=== PATIENT | male | born 1945 | race Caucasian/White ===

== ENCOUNTER 2017-03-23 17:39 | Inpatient (IN) | payer MEDICARE ==
[~2017-03-23] VITALS: Ht 182.9 cm; Wt 94.5 kg
--- NOTE | ~2017-03-23 | EC ---
PATIENT:KELVIN CONWAY JR DATE OF SERVICE: 03/23/17 SEX: M MEDICAL RECORD: [id number] DATE OF : 43 LOCATION:D. D.212 AGE OF PATIENT: 71 ADMISSION DATE: 03/23/17 REFERRING PHYSICIAN: INTERPRETING PHYSICIAN: BETY MENDOZA M.D. ECHOCARDIOGRAM REPORT ECHO CHARGES 5 ECHO LIMITED CLINICAL DIAGNOSIS: REASSESS RV THROMBUS,RV FUNCTION AND RVSP ECHOCARDIOGRAPHIC MEASUREMENTS (adult normal given) AC root (d.<3.7cm) 0 LV Septum d (<1.2 cm> 0 Valve Excursion 0 LV Septum (systole) 0 Left Atria (s.<4.0cm> 0 LVPW d(<1.2cm) 0 RV (d.<2.3cm) 0 LVPW (sytole) 0 LV diastole(<5.6CM) 0 MV E-F(>70mm/sec) 0 LV systole 0 LVOT Diameter 0 MV exc.(>10mm) 0 Est.ejection fraction (50-75%) Pericardial Effusion N DOPPLER: LVIT 0 A 0 E 0 LA 0 RVSP 43 LVOT 0 AOP1/2T 0 Asc. Ao 0 RVOT 0 RA 0 PA 0 AV Gradient Peak 0 AV Mean 0 AV Area 0 MV Gradient Peak 0 MV Mean 0 MV Area 0 COMMENTS: LIMITED STUDY (2-D ONLY) COMPLETE ECHO DONE ON 03/25/17 Physician'S Assistant: Geovanna PETERS Respiratory Therapy Instructor:2 Dr. Mendoza TAPE# PACS DATE OF SERVICE: 03/30/2017 INDICATION: Ventricular thrombus. REFERRING PHYSICIAN: Aaron Iglesias MD DESCRIPTION: This is a limited study. This was done to compare the study from 3 days ago regarding ventricular thrombus. Left ventricle is normal size and function. Estimated ejection fraction is 55%. ECHOCARDIOGRAM REPORT [id number] KELVIN CONWAY JR No wall motion abnormalities are seen. Mitral valve is structurally normal. There is mild regurgitation seen. The left atrium is normal in size. The right ventricle is normal in size. There does appear to be a thrombus near the apex. It does appear improved from the study on 03/27/2017. It appears a little bit adherent to the wall, but again, has improved from the previous study and appears to be reduced by another 1/3 compared to the last study. There is mild tricuspid regurgitation seen. There is no evidence of pericardial effusion. IMPRESSION: It appears the thrombus in the right ventricle apex is resolving. It appears improved from the study on 03/27/2017. It does appear to be somewhat adherent to the wall of the right ventricle. TRANSINT:[id number] Voice Confirmation ID: [id number] DOCUMENT ID: [id number] BETY MENDOZA M.D. CC: [id number] DICTATION DATE: 03/31/17954 GLOST TILE SHADER: 03/31/17 1149 ADM IN [facility] [address] [place] [place] [id number]
--- NOTE | ~2017-03-23 | HEMODYNAMI ---
PATIENT:KELVIN CONWAY JR MEDICAL RECORD: [id number] : 41 LOCATION:[place] [address] ADMISSION DATE: 03/23/17 Generatedon:03/26/201712:52 Patient name: KELVIN CONWAY Patient #: [id number] SSN: : 1 [id number] Date of study: 03/26/2017 Page: Of Hemodynamic Procedure Report Patient Data Patient Demographics Procedure consent was obtained First Name: KELVIN Gender: Male Last Name: ZORAIDA Suffix: [facility] Initial: DUGLAS : 1945 Patient #: [id number] Age: 71 year(s) Race: Unknown Additional ID: [id number] Contact details Address: [address] [place] [address] [facility] State: [place] City: [place] Zip code: [address] Past Medical History Allergies: No known allergies Admission Admission Data Admission Date: 03/23/2017 Admission Time: 21:57 Room #: [facility] Weight (lbs.): 190 Weight (kg.): 86.18 Procedure Procedure Types Cath Procedure Peripheral Cath Diagnostic Procedure Cath Peripheral Venography IVC/SVC Inferior Venacava Filter Procedure Description Procedure Date Procedure Date: 03/26/2017 Procedure Start Time: 9:02 Procedure Staff Name Function Breonna Archuleta RN Nurse Hallie Flores RT Lead Carpenter Hallie Flores RT Monitor Timothy Dominguez RT Scrub Wilfrid Meng MD Performing Physician Neva Braone RN Nurse Procedure Data Cath Procedure Fluoroscopy Diagnostic fluoroscopy Total fluoroscopy Time: 0.9 time: 0.9 min min Diagnostic fluoroscopy Total fluoroscopy dose: 107 dose: 107 mGy mGy Contrast Material Contrast Material Type Amount (ml) Isovue 300 25 Procedure Medications Medication Administration Route Dosage Fentanyl I.V. 50 mcg Versed I.V. 1 mg Fentanyl I.V. 50 mcg Versed I.V. 1 mg Fentanyl I.V. 50 mcg Hemodynamics Rest Heart Rate: 87 (bpm) Snapshots Pre Cath Intra NCS Post Cath Vital Signs Time Heart Resp SPO2 NIBP (mmHg) Rhythm Pain Sedation Rate (ipm) (%) Status Level (bpm) 8:42:08 80 26 96 162/108(147) NSR 0 (11) 10(A) , No pain 8:46:39 75 24 98 159/100(137) NSR 0 (11) 10(A) , No pain 8:51:03 74 29 94 152/96(133) NSR 0 (11) 10(A) , No pain 8:55:27 74 26 94 153/101(129) NSR 0 (11) 10(A) , No pain 8:59:53 73 25 94 158/95(135) NSR 0 (11) 10(A) , No pain 9:04:16 74 28 92 145/95(123) NSR 0 (11) 10(A) , No pain 9:08:36 71 26 93 144/96(124) NSR 0 (11) 10(A) , No pain 9:12:56 72 26 94 142/98(123) NSR 0 (11) 10(A) , No pain 9:17:16 71 26 94 150/95(130) NSR 0 (11) 10(A) , No pain 9:21:16 No Cuff NSR 0 (11) 10(A) , No pain 9:25:15 No Cuff NSR 0 (11) 10(A) , No pain Medications Time Medication Route Dose Verified Delivered Reason Notes Effectivenes s by by 8:50:33 Fentanyl I.V. 50 Neva Neva for mcg Lizabeth Lizabeth sedation RN RN 8:55:09 Versed I.V. 1 mg Neva Neva for Lizabeth Lizabeth sedation RN RN 8:55:39 Fentanyl I.V. 50 Neva Neva for mcg Lizabeth Lizabeth sedation RN RN 9:00:10 Fentanyl I.V. 50 Neva Neva for mcg Lizabeth Lizabeth sedation RN RN 9:00:20 Versed I.V. 1 mg Neva Neva for Lizabeth Lizabeth sedation RN education specialist Log Time Note 8:25:16 Patient Weight : 190 kg 8:28:42 Time tracking: Regular hours 8:30:04 Plan of Care:Hemodynamics will remain stable., Cardiac rhythm will remain stable., Comfort level will be maintained., Respiratory function will remain adequate., Patient/ family verbilizes understanding of procedure., Procedure tolerated without complication., Recovers from procedure without complications.. 8:30:20 Patient received from CVICU to IR Alert and oriented. Tansferred to table in Supine position. 8:30:26 Signed procedure consent form obtained from patient. 8:30:30 8:31:17 Use device set IR Diagnostic 8:31:19 Sterile Angiographic Pack opened to sterile field. 8:31:20 Bag Decanter opened to sterile field. 8:31:21 Acist Manifold opened to sterile field. 8:31:22 Acist Hand Control opened to sterile field. 8:31:23 Acist Syringe opened to sterile field. 8:31:44 Cook Salient PharmaceuticalsSON 145cm guide wire opened to sterile field. 8:31:45 Micropuncture VSI 4FR kit opened to sterile field. 8:33:04 H&P Date Dictated: 03/26/2017 Within 30 days and on chart.. 8:33:07 Pre-procedure instructions explained to patient. 8:33:08 Pre-op teaching completed and patient verbalized understanding. 8:33:11 Family unavailable. 8:33:14 Patient NPO since Midnight. 8:33:23 Patient allergic to No known allergies 8:33:47 Is the patient allergic to Iodine/contrast media? No. 8:33:50 Patient diabetic? No. 8:33:53 8:34:01 ----Pre-sedation anethsthesia assessment.---- 8:34:08 Previous problem with sedation/anesthesia? No ? 8:34:13 Snore? Yes 8:34:16 Sleep apnea? No 8:34:21 Deviated septum? No 8:34:23 Opens mouth fully? Yes 8:34:25 Sticks out tongue? Yes 8:34:30 Airway obstruction? No ?patient has afib 8:34:55 Dentures? No ? 8:35:05 IV patent on arrival in left forearm with 0.9% NaCl at [facility]. 8:35:16 Lab results completed and on chart. 8:35:28 Right groin area was prepped with chlora-prep and draped in sterile fashion 8:35:30 8:40:33 ECG and BP/O2 sat monitors applied to patient. 8:40:42 Vital chart was started 8:40:45 Baseline sample Acquired. 8:40:47 Baseline sample Acquired. 8:44:33 Alarms reviewed by Rimma Riggs 8:44:34 Sharps counted by scrub and verified by RToddNTodd 8:44:35 8:50:33 Fentanyl 50 mcg I.V. was administered by Neva Barone RN; for sedation; 8:55:08 Physician arrived 8:55:09 Versed 1 mg I.V. was administered by Neva Barone RN; for sedation; 8:55:39 Fentanyl 50 mcg I.V. was administered by Neva Barone RN; for sedation; 9:00:10 Fentanyl 50 mcg I.V. was administered by Neav Barone RN; for sedation; 9:00:20 Versed 1 mg I.V. was administered by Neva Barone RN; for sedation; 9:00:46 Final Timeout: patient, procedure, and site verified with staff and physician. All members of the team are in agreement. 9:01:01 Right groin site verified by team. 9:01:06 Physical assessment completed. ASA score P 3 - A patient with severe systemic disease as per Wilfrid Meng MD. 9:01:12 Sedation plan: IV Moderate Sedation Versed, Fentanyl 9:01:31 Bard NELIDA Vena Cava Filter opened to sterile field. 9:01:32 TUBING, CONTRAST INJCTN HI PRES opened to sterile field. 9::40 Full Disclosure recording started 9::40 Procedure started. 9:02:09 Local anesthetic to right femoral vein with Lidocaine 1% by Wilfrid Meng MD.INITIAL ACCESS ONLY 9:02:47 Venous access obtained using ultrasound guidance. 9:10:29 [place] Femoral IVC filter was placed below renal veins. 9:14:47 Procedure ended.(Physican Out) 9:14:53 Fluoroscopy time 00.90 minutes. 9:15:00 Fluoroscopy dose: 107 mGy 9:15:00 Flurop Dose total: 107 9:15:13 Contrast amount:Isovue 300 25ml. 9:15:16 Sharps counted by scrub and verified by R.N. 9:26:41 Procedure and supply charges have been captured, reviewed, submitted and are correct. 9:26:57 Vital chart was stopped 9:27:01 Full Disclosure recording stopped Device Usage Item Name Manufacture Quantity Catalog Hospital Part Current Minima l Lot# / Number Charge Number Stock Stock Serial# Code Sterile Cardinal 1 [id number] 5 Angiographic Health Pack Bag Decanter Microtek 1 [id number] 88569 [id number] 5 Medical Inc. Acist Acist 1 23301 440426 558672 926590 5 Manifold Medical Systems Inc Acist Hand Acist 1 26896 879628 558999 413591 5 Control Medical Systems Inc Acist Syringe Acist 1 84504 185799 350525 056809 20 Medical Systems Inc [facility] Meal Sharing Medical 1 [id number] 273931 217653 5 [id number] 145cm guide wire Micropuncture VSI VASCULAR 1 [id number] 978007 586770 5 VSI 4FR kit SOLUTIONS Bard NELIDA Bard 1 [id number] 009301 542210 152855 5 Vena Cava Filter TUBING, Merit 1 [id number] 524894 711963 539926 5 CONTRAST Medical INJCTN HI PRES Signature Audit Desdemona Stage Time Signature Unsigned Intra-Procedure 03/26/2017 Hallie Flores 9:26:54 AM RT(R); Breonna Archuleta RN Signatures Monitor : Hallie Flores RT Signature : Date : Time : [facility] [address] [facility] [place] [address]
--- NOTE | ~2017-03-23 | EC ---
PATIENT:KELVIN CONWAY JR DATE OF SERVICE: 03/23/17 SEX: M MEDICAL RECORD: [id number] DATE OF : 43 LOCATION:D.M2 D.212 AGE OF PATIENT: 71 ADMISSION DATE: 03/23/17 REFERRING PHYSICIAN: INTERPRETING PHYSICIAN: BETY MENDOZA M.D. ECHOCARDIOGRAM REPORT ECHO CHARGES 5 ECHO LIMITED CLINICAL DIAGNOSIS: RV MASS/THROMBUS S/P IVC FILTER PLACEMENT ECHOCARDIOGRAPHIC MEASUREMENTS (adult normal given) AC root (d.<3.7cm) 0 LV Septum d (<1.2 cm> 0 Valve Excursion 0 LV Septum (systole) 0 Left Atria (s.<4.0cm> 0 LVPW d(<1.2cm) 0 RV (d.<2.3cm) 0 LVPW (sytole) 0 LV diastole(<5.6CM) 0 MV E-F(>70mm/sec) 0 LV systole 0 LVOT Diameter 0 MV exc.(>10mm) 0 Est.ejection fraction (50-75%) Pericardial Effusion N DOPPLER: LVIT 0 A 0 E 0 LA 0 RVSP 0 LVOT 0 AOP1/2T 0 Asc. Ao 0 RVOT 0 RA 0 PA 0 AV Gradient Peak 0 AV Mean 0 AV Area 0 MV Gradient Peak 0 MV Mean 0 MV Area 0 COMMENTS: LIMITED STUDY (2-D ONLY) COMPLETE ECHO DONE ON 03/25/17 Transportation Operations Manager: Norma LUIOE Demand Generation Manager:Geovanna Mendoza TAPE# PACS DATE OF SERVICE: 03/27/2017 REFERRING PHYSICIAN: Aaron Iglesias M.D. INDICATION: Right ventricular thrombus. DESCRIPTION: This is a limited study. The full echo was done on 03/25/2017. Left ventricle does appear normal size and function. In the right ventricle there does still appear to be a mass. It measures 2.2 cm x 0.7 cm. This still appears to be thrombus. However, it appears to be about half the size it was a ECHOCARDIOGRAM REPORT [id number] KELVIN CONWAY few days ago. It does not extend all the way across the apex as before. Tricuspid valve appears structurally normal. There is no pericardial effusion seen. IMPRESSION: The right ventricular mass, which is likely thrombus, appears to be dissipating. It is about half the size it was on the previous echo 2 days ago. TRANSINT:[id number] Voice Confirmation ID: [id number] DOCUMENT ID: [id number] BETY MENDOZA M.D. CC: [id number] DICTATION DATE: 03/28/17733 GRAIN ELEVATOR MOTOR STARTER: 03/28/17 112 ADM IN [facility] [address] [place] [address]
--- NOTE | ~2017-03-23 | EC ---
PATIENT:KELVIN CONWAY JR DATE OF SERVICE: 03/23/17 SEX: M MEDICAL RECORD: [id number] DATE OF : 43 LOCATION:[place] [address] AGE OF PATIENT: 71 ADMISSION DATE: 03/23/17 REFERRING PHYSICIAN: INTERPRETING PHYSICIAN: BETY MENDOZA M.D. ECHOCARDIOGRAM REPORT ECHO CHARGES 4 ECHO COMPLETE CLINICAL DIAGNOSIS: SOB ECHOCARDIOGRAPHIC MEASUREMENTS (adult normal given) AC root (d.<3.7cm) 3.9 LV Septum d (<1.2 cm> 1.5 Valve Excursion 2.3 LV Septum (systole) 1.7 Left Atria (s.<4.0cm> 3.2 LVPW d(<1.2cm) 1.3 RV (d.<2.3cm) 3.2 LVPW (sytole) 1.7 LV diastole(<5.6CM) 4.7 MV E-F(>70mm/sec) LV systole 3.1 LVOT Diameter 2.2 MV exc.(>10mm) Est.ejection fraction (50-75%) Pericardial Effusion N DOPPLER: LVIT A 75.0 E 53.0 LA RVSP 79.0 LVOT 83.0 AOP1/2T Asc. Ao 136 RVOT 40.0 RA PA 41.0 AV Gradient Peak 7.4 AV Mean 3.5 AV Area 2.3 MV Gradient Peak 2.4 MV Mean 0.97 MV Area COMMENTS: Sql Programmer: Norma COLLIER Block Paver:Geovanna Mendoza TAPE# PACS DATE OF SERVICE: 03/25/2017 REFERRING PHYSICIAN: Aaron Iglesias MD INDICATION: Pulmonary hypertension and dyspnea. DESCRIPTION: Left ventricular demonstrates left ventricular hypertrophy. There is moderate LV dysfunction noted. Estimated ejection fraction is in the order of 40%. No regional wall motion abnormalities noted. Mitral valve is structurally normal. There is mild to moderate regurgitation noted. Left ECHOCARDIOGRAM REPORT [id number] KELVIN CONWAY JR atrium is normal size. The aortic valve is trileaflet. There is mild insufficiency seen, but no evidence of stenosis. Right ventricle is moderately dilated. There is mild impairment of systolic function. Tricuspid valve is structurally normal. There is moderate regurgitation noted. Right ventricular systolic pressure is elevated at 79 mmHg. Right atrium is mildly dilated. There is no pericardial effusion seen. In the right ventricle apex, there is a long linear structure suspicious for thrombus. This does not appear to be a Chiari network or any other abnormality of the ventricle. I do not think it is a mass IMPRESSION: 1. Moderate left ventricular dysfunction with ejection fraction of 40%. 2. Mild mitral regurgitation. 3. Mild aortic insufficiency. 4. Moderate tricuspid regurgitation with pulmonary hypertension. 5. There appears to be a long linear structure across the right ventricle apex which is suspicious for a thrombus. TRANSINT:[id number] Voice Confirmation ID: [id number] DOCUMENT ID: [id number] BETY MENDOZA M.D. CC: [id number] DICTATION DATE: 03/26/17 0839 POLE LIFT OPERATOR: 03/26/17 1035 ADM IN [facility] [address] [place] [id number]
[2017-03-23 18:51] LABS: BASOPHILS 0.1 % (0-2); EOSINOPHILS 0.2 % (0-7); HEMATOCRIT 42.3 % (42.0-54.0); HEMOGLOBIN 14.1 g/dL (13.5-17.5); IMMATURE GRANULOCYTES 0.4 % (0-5); LYMPHOCYTES 11.5 % (15-50); MCH 33.1 pg (26.0-34.0); MCHC 33.3 g/dL (31.0-37.0); MCV 99.3 fL (80.0-100.0); MEAN PLATELET VOLUME 10.1 fL (7.4-10.4); MONOCYTES 5.8 % (2-11); RBC 4.26 10x6/uL (4.20-6.10); RDW 13.7 % (11.5-14.5); WBC 12.6 10x3/uL (4.8-10.8)
[2017-03-23 18:52] LABS: PLATELET COUNT 144 10x3/uL (130-400)
[2017-03-23 19:03] LABS: ALBUMIN 2.9 g/dL (3.4-5.0); ANION GAP 9.9 mmol/L (8-16); BILIRUBIN - TOTAL 1.3 mg/dL (0.2-1.3); CALCIUM 8.6 mg/dL (8.5-10.1); CARBON DIOXIDE 31.4 mmol/L (21.0-32.0); CREATININE - SERUM 1.3 mg/dL (0.6-1.3); POTASSIUM - SERUM 4.3 mmol/L (3.5-5.1); PROTEIN - SERUM 6.4 g/dL (6.4-8.2)
[2017-03-23 22:47] VITALS: BP 117/88; BMI 25.8
[2017-03-23] MEDS ORDERED: RYTHMOL SR225 MG PO (23:04)
[2017-03-23] MEDS ORDERED: SAW PALMETTO450 MG PO (23:05)
[2017-03-23] MEDS ORDERED: DOXYCYCLINE HY100 M2 PO (23:05)
--- NOTE | 2017-03-23 23:21 | NUR ---
PT ARRIVED VIA STRETCHER FROM ER AT 2234 HRS. NO DISTRESS NOTED. IV TO L WRIST WITH NS AT 50CC/HR. O2 2LNC. LUNGS DIMINISHED IN BASES BILAT. FEET COLD TO TOUCH. PT STATES THAT IS NORMAL FOR HIM. WAINWRIGHT. SKID PROOF SOCKS PLACED ON PT. ADMISSION ASSESSMENT, HISTORY AND HOME MED LIST COMPLETED. PT CURRETNLY RESTING WITH EYES CLOSED. RESP EVEN AND REGULAR. SR UP X2, CALL LIGHT WITHIN REACH.
--- NOTE | 2017-03-23 23:58 | NUR ---
ZITHROMAX 500MG IVPB INFUSING. WILL CONTINUE TO MONITOR.
[2017-03-24 00:36] VITALS: BP 117/88
--- NOTE | 2017-03-24 02:27 | NUR ---
PT STATED IV HURTING. ZITHROMZX RATE DECREASED TO 75CC/HR. APPROX 15 MINUTES LATER PT STATED HE CAN'T TOLERATE IT AT ALL. APPROX 30CCOF IVAB LEFT IN BAG. IV DETACHED FORM PT AND LINE FLUSHED WITH THE NS BY JORDON BLAKE. NS BACK UP AT 50CC/HR. RECHECKED WITH PT APPROX 10 MINNUTES LATER AND PT STATED NO DISCOMFORT FROM IV. O2 SAT 94% ON 2LNC. WILL CONTINUE TO MONITOR.
[2017-03-24 04:30] VITALS: BP 129/94
--- NOTE | 2017-03-24 04:44 | NUR ---
SR PER CM HR 85. PT DENIES ANY SOB AT THIS TIME. SCD'S EXPLAINED TO PT. SCD'S ON AT THAT TIME. WILL CONTINUE TO MONITOR.
--- NOTE | 2017-03-24 06:00 | NUR ---
VSS THROUGHOUT NIGHT. SR PER CM. PT DENIES ANY DISCOMFORT AT THIS TIME. NEEDS MET; WILL CONTINUE TO MONITOR.
[2017-03-24 08:05] VITALS: BP 122/101
[2017-03-24 10:35] LABS: CKMB 1.1 U/L (0.0-3.6); CREATINE KINASE 40 UL (21-232)
--- NOTE | 2017-03-24 11:51 | NUR ---
ALERT AND ORIENTED X4. BLOOD PRESSURE 155/90 WITH VITAL SIGN MACHINE. RECHECK BP MANUALLY. BP-122/86. D-DIMER GREATER THAN 20. TROPONIN 0.070. LAB RESULTS CALLED TO DR. CHAN PER ORDER. CTA ORDERED WITH RESULTS TO BED CALLED TO . DENIES ANY NEEDS. LOVENOX ONE TIME DOSE ORDERED PER . CONTINUE PLAN OF CARE AND SAFETY PRECAUTIONS.
[2017-03-24 12:06] VITALS: BP 122/85
[2017-03-24 19:00] VITALS: BP 113/81
--- NOTE | 2017-03-24 20:11 | NUR ---
INITIAL ROUNDS COMPLETED AT 1915 HRS. PT DENIED ANY DISCOMFORT. PT STATED HE WILL REFUSE PM ZITHROMAX. ASSESSMENT COMPLETED AT 194 HRS. SR PER CM HR 99. O2 2LNC. LUNGS DIMINISHED IN BASES BILAT. IV TO L WRIST WITH NS AT 50CC/HR. IV PATENT. FEET COOL TO TOUCH WITH PALPABLE PEDAL PULSES. PT STATES THAT IS NORMAL FOR HIM. WILL CONTINUE TO MONITOR. SR UP X2, CALL LIGHT WITHIN REACH.
--- NOTE | 2017-03-24 22:05 | NUR ---
PM MEDS GIVEN. PT REFUSED IV ZITHROMAX STATING IT WAS PAINFUL INFUSING LAST PM. DOPPLER OF BILAT LEGS COMPLETED. R FOOT COOL TO TOUCH. L FOOT SLIGHTY WARM WITH RACE EDEMA. PALPABLE BILAT PEDAL PULSES. PT DENIES ANY DISCOMFORT. WILL CONTINUE TO MONITOR. SCD'S OFF EARLIER IN THE DAY.
--- NOTE | 2017-03-24 22:21 | NUR ---
DR CHAN NOTIFIED OF RESULTS OF DOPPLER. NO NEW ORDERS.
--- NOTE | 2017-03-24 23:39 | NUR ---
PT RESTING WITH EYES CLOSED. RESP EVEN AND REGULAR. SR UPX2, CALL LIGHT WITHIN REACH.
[2017-03-24 23:56] VITALS: BP 114/86
[2017-03-25] VITALS (13 sets, daily range): BP systolic 115–154; BP diastolic 73–119
--- NOTE | 2017-03-25 01:45 | NUR ---
PT RESTING WITH EYES CLOSED. RESP EVEN AND REGULAR. SR UP X2, CALL LIGHT WITHIN REACH.
--- NOTE | 2017-03-25 04:18 | NUR ---
PT AWAKE;DENIES ANY DISCOMFORT. WILL CONTINUE TO MONITOR.
--- NOTE | 2017-03-25 05:45 | NUR ---
VSS TRHOUGHOUT NIGHT. SR PER CM. PT DENIED ANY DISCOMFORT. NEEDS MET; WILL CONTINUE TO MONITOR.
[2017-03-25 06:21] LABS: BASOPHILS 0.2 % (0-2); EOSINOPHILS 0.9 % (0-7); HEMOGLOBIN 12.9 g/dL (13.5-17.5); IMMATURE GRANULOCYTES 0.5 % (0-5); LYMPHOCYTES 15.7 % (15-50); MCH 33.1 pg (26.0-34.0); MCHC 33.9 g/dL (31.0-37.0); MCV 97.4 fL (80.0-100.0); MEAN PLATELET VOLUME 10.1 fL (7.4-10.4); MONOCYTES 13.2 % (2-11); NEUTROPHILS 69.5 % (40-80); PLATELET COUNT 145 10x3/uL (130-400); RDW 13.9 % (11.5-14.5); WBC 15.5 10x3/uL (4.8-10.8)
[2017-03-25 07:10] LABS: CALC OSMOLALITY 290 mosm/kg (275-300); CALCIUM 8.1 mg/dL (8.5-10.1); CARBON DIOXIDE 24.1 mmol/L (21.0-32.0); CHLORIDE - SERUM 107 mmol/L (98-107); GLUCOSE 121 mg/dL (74-106); SODIUM 142 mmol/L (136-145); UREA NITROGEN 33 mg/dL (7-18); eGFR NON AFRICAN AMERICAN 78 mL/min (90-120)
[2017-03-25 07:15] LABS: TROPONIN-I 0.076 ng/mL (0.000-0.060)
--- NOTE | 2017-03-25 14:20 | NUR ---
ALERT AND ORIENTED X4. ORDER TO TRANSFER TO CVICU07 PER . TRANSFER TO CVICU RM 7 WITH RESPIRATORY ASSISTANCE. REMAIN FREE FROM INJURY.
--- NOTE | 2017-03-25 14:20 | NUR ---
Received patient from floor via bed. Patient transferred from floor bed to ICU bed. Patient AAO x4, accompanies him. and aware of consults. Patient connected to monitors.
--- NOTE | 2017-03-25 14:32 | NUR ---
in room to see patient.
--- NOTE | 2017-03-25 15:00 | NUR ---
SECOND IV SITE STARTED TO RIGHT AC. DR KUHN, DR MINA, DR RUIZ HERE TO SEE PT. S1S2 NOTED, SR PER CM. LUNG SOUNDS CLR BILAT, PT HAS NC @ 2L. PPP. LOWER EXTEMITIES WARM, CMS INTACT. NEW ORDERS RECD. VSS. WILL MONITOR.
--- NOTE | 2017-03-25 17:18 | NUR ---
PT PROVIDED WITH DINNER TRAY AT THIS TIME. PT SITS UP IN BED TO EAT, FEEDS INDEPENDENTLY.
--- NOTE | 2017-03-25 19:41 | NUR ---
REPORT RECEIVED AND ASSESMENT COMPLETED. SEE FLOWSHEET FOR FULL DETAILS. VSS. WILL MONITOR THROUGHOUT SHIFT. DR MINA AT BEDSIDE. DISCUSSED PT CONDITION AND TPA ADMINISTRATION THAT OCCURED EARLIER TODAY. WILL CONTINUE TO FOLLOW CURRENT CARE PLAN.
--- NOTE | 2017-03-25 21:31 | NUR ---
2100 MEDS GIVEN. NO CHANGES IN STATUS AT THIS TIME. PT RESTING IN ROOM IN VIEW OF NURSES STATION BEDSIDE RAILS UP X 2. VSS WILL CONTINUE TO MONITOR FOR CHANGES.
--- NOTE | 2017-03-25 23:24 | NUR ---
REASSESSMENT COMPLETED SEE FLOWSHEET FOR FULL DETAILS. NO OTHER CHANGES AT THIS TIME. VSS. WILL CONTINUE TO MONITOR FOR CHANGES THROUGHOUT SHIFT.
[2017-03-26] VITALS (24 sets, daily range): BP systolic 116–147; BP diastolic 71–90; Ht 182.9 cm; Wt 94.5 kg
--- NOTE | 2017-03-26 01:08 | NUR ---
NO CHANGES IN STATUS AT THIS TIME. VSS. WILL MONITOR
--- NOTE | 2017-03-26 03:00 | NUR ---
REASSESSMENT COMPLETED. SEE FLOWSHEET FOR FULL DETAILS. NO OTHER CHANGES IN PT STATUS AT THIS TIME. VSS WILL CONTINUE TO MONITOR CLOSELY.
[2017-03-26 04:27] LABS: BASOPHILS 0.2 % (0-2); EOSINOPHILS 3.8 % (0-7); HEMATOCRIT 37.8 % (42.0-54.0); HEMOGLOBIN 12.7 g/dL (13.5-17.5); IMMATURE GRANULOCYTES 0.7 % (0-5); MCH 33.1 pg (26.0-34.0); MCHC 33.6 g/dL (31.0-37.0); MCV 98.4 fL (80.0-100.0); MEAN PLATELET VOLUME 9.6 fL (7.4-10.4); MONOCYTES 15.7 % (2-11); NEUTROPHILS 58.6 % (40-80); PLATELET COUNT 152 10x3/uL (130-400); RBC 3.84 10x6/uL (4.20-6.10); RDW 13.9 % (11.5-14.5); WBC 12.2 10x3/uL (4.8-10.8)
[2017-03-26 04:31] LABS: CALC OSMOLALITY 286 mosm/kg (275-300); CALCIUM 8.1 mg/dL (8.5-10.1); CARBON DIOXIDE 28.4 mmol/L (21.0-32.0); CHLORIDE - SERUM 107 mmol/L (98-107); GLUCOSE 100 mg/dL (74-106); INR 1.41 (0.85-1.17); POTASSIUM - SERUM 3.6 mmol/L (3.5-5.1); SODIUM 142 mmol/L (136-145); UREA NITROGEN 25 mg/dL (7-18); eGFR NON AFRICAN AMERICAN 78 mL/min (90-120)
[2017-03-26 04:33] LABS: APTT 41.5 SECONDS (22.8-39.4)
--- NOTE | 2017-03-26 05:31 | NUR ---
NO CHANGES IN STATUS AT THIS TIME. PT RESTING IN ROOM BED IN LOW POSITION SIDE RAILS UP X 2. VSS. WILL CONTINUE TO MONITOR THROUGHOUT SHIFT.
[2017-03-26 11:16] LABS: ACLA - IGG AB <9 GPL U/mL (0-14); ACLA - IGM AB 15 MPL U/mL (0-12)
--- NOTE | 2017-03-26 14:47 | NUR ---
Is the patient Alert and Oriented? Yes 0 * How many steps to enter\exit or inside your home? 2 0 * PCP DR. CHAN 0 * Pharmacy [facility] ON [address] 0 * Preadmission Environment Home with Family 0 * ADLs Independent 0 * Equipment None 0 * List name and contact numbers for known caregivers / representatives who currently or will assist patient after discharge: SPOUSE: KARY [phone] 0 * Community resources currently utilized None 0 * Additional services required to return to the preadmission environment? No 0 * Can the patient safely return to the preadmission environment? Yes 0 * Has this patient been hospitalized within the prior 30 days at any hospital? No PATIENT LIVES AT HOME WITH HIS SPOUSE, KARY. HE STATES HE WAS INDEPENDENT IN ALL ADL'S PRIOR TO COMING INTO THE HOSPITAL. PATIENT STATES HIS PCP IS DR. CHAN. [facility] [address]. PATIENT DENIES USE OF ANY EQUIPMENT. HE STATES HE HAS NEVER HAD HOME HEALTH CARE. PATIENT STATES THERE ARE 2 STEPS TO ENTER HIS HOME. NO DISCHARGE NEEDS IDENTIFIED AT THIS TIME.
--- NOTE | 2017-03-26 19:00 | NUR ---
REPORT RECEIVED AND ASSESSMENT COMPLETED. SEE FLOWSHEET FOR FULL DETAILS. GROIN DRESSING IS CDI. NO SIGNS OF BLEEDING. VSS. WILL MONITOR THROUGHOUT SHIFT.
--- NOTE | 2017-03-26 21:00 | NUR ---
NO CHANGES IN STATUS AT THIS TIME. 2100 MEDS PROVIDED. VSS. WILL CONTINUE TO MONITOR
--- NOTE | 2017-03-26 23:00 | NUR ---
REASSESSMENT COMPLETED. SEE FLOWSHEET. PT SHOWS NO SIGNS OF BLEEDING FROM RIGHT GROIN ASITE. DRESSING IS CDI. VSS. WILL CONTINUE TO MONITOR.
[2017-03-27] VITALS (19 sets, daily range): BP systolic 108–154; BP diastolic 57–663
--- NOTE | 2017-03-27 01:00 | NUR ---
NO CHANGES IN STATUS AT THIS TIME. VSS. WILL MONITOR
--- NOTE | 2017-03-27 02:59 | NUR ---
REASSESSMENT COMPLETED. SEE FLOWSHEET FOR FULL DETAILS. NO OTHER CHANGES IN STATUS AT THIS TIME. VSS.
[2017-03-27 04:44] LABS: BASOPHILS 0.1 % (0-2); EOSINOPHILS 4.1 % (0-7); HEMATOCRIT 37.2 % (42.0-54.0); HEMOGLOBIN 12.5 g/dL (13.5-17.5); IMMATURE GRANULOCYTES 0.5 % (0-5); LYMPHOCYTES 21.2 % (15-50); MCHC 33.6 g/dL (31.0-37.0); MCV 98.2 fL (80.0-100.0); MEAN PLATELET VOLUME 9.6 fL (7.4-10.4); MONOCYTES 15.3 % (2-11); NEUTROPHILS 58.8 % (40-80); PLATELET COUNT 160 10x3/uL (130-400); RBC 3.79 10x6/uL (4.20-6.10); RDW 13.8 % (11.5-14.5); WBC 9.2 10x3/uL (4.8-10.8)
[2017-03-27 04:45] LABS: INR 1.34 (0.85-1.17); PROTIME 16.4 SECONDS (11.6-15.0)
[2017-03-27 04:52] LABS: ALBUMIN 2.2 g/dL (3.4-5.0); ALKALINE PHOSPHATASE 69 U/L (46-116); ALT (SGPT) 32 U/L (10-68); BILIRUBIN - TOTAL 0.74 mg/dL (0.2-1.3); CALC OSMOLALITY 287 mosm/kg (275-300); CALCIUM 7.9 mg/dL (8.5-10.1); CARBON DIOXIDE 30.4 mmol/L (21.0-32.0); CHLORIDE - SERUM 107 mmol/L (98-107); CREATININE - SERUM 0.9 mg/dL (0.6-1.3); GLUCOSE 98 mg/dL (74-106); MAGNESIUM - SERUM 1.8 mg/dL (1.8-2.4); PHOSPHOROUS 3.2 mg/dL (2.5-4.9); POTASSIUM - SERUM 3.3 mmol/L (3.5-5.1); PROTEIN - SERUM 5.2 g/dL (6.4-8.2); SODIUM 143 mmol/L (136-145); UREA NITROGEN 20 mg/dL (7-18); eGFR NON AFRICAN AMERICAN 88 mL/min (90-120)
--- NOTE | 2017-03-27 05:12 | NUR ---
NO CHANGES IN STATUS AT THIS TIME. PT RESTING IN ROOM. VSS. WILL MONITOR
--- NOTE | 2017-03-27 07:15 | NUR ---
REPORT RECIEVED FROM POLYSOMNOGRAPHER NURSE. PT RESTING IN BED QUIETLY. ASSISTED TO BATHROOM WITH MINIMAL ASSISTANCE. DENIES PAIN OR DISCOMFORT. FULL ASSESSMENT COMPLETE PER FLOWSHEET. ASSISTED BACK TO BED. BED ALARM ON AND CALL LIGHT IN REACH. WILL CONT TO ASSESS FOR CHANGES THROUGHOUT SHIFT. PLAN OF CARE CONT.
[2017-03-27 07:26] LABS: PROTEIN S - FREE 59 % (57-157); PROTEIN S - TOTAL 74 % (60-150)
--- NOTE | 2017-03-27 08:00 | NUR ---
HEPARIN GTT ADJUSTED PER FLOWSHEET.
--- NOTE | 2017-03-27 09:00 | NUR ---
AT BEDSIDE. UPDATE PROVIDED.
[2017-03-27 09:19] LABS: PROTEIN S - FREE 60 % (57-157); PROTEIN S - FUNCTIONAL 81 % (63-140); PROTEIN S - TOTAL 74 % (60-150)
--- NOTE | 2017-03-27 11:00 | NUR ---
PT RESTING IN BED WITH EYES CLOSED. NO S/SX OF ACUTE DISTRESS NOTED AT THIS TIME. WILL CONT TO ASSESS.
[2017-03-27 11:19] LABS: LUPUS - INTERPRETATION Comment: (()); LUPUS - dRVVT 43.9 sec (0.0-47.0); PTT-LA 30.4 sec (0.0-43.6)
--- NOTE | 2017-03-27 12:30 | NUR ---
LUNCH TRAY PLACED ON BEDSIDE TABLE. FRESH ICE WATER TAKEN TO PT. DENIES FURTHER NEEDS. WILL CONT TO ASSESS.
--- NOTE | 2017-03-27 14:00 | NUR ---
SPOKE TO ON PHONE. UPDATE PROVIDED.
--- NOTE | 2017-03-27 14:47 | NUR ---
PTT DRAWN AND DOES NOT REQUIRE CHANGE OF HEPARIN GTT.
--- NOTE | 2017-03-27 15:00 | NUR ---
REASSESMENT COMPLETE PER FLOWSHEET. NO CHANGES NOTED AT THIS TIME.
--- NOTE | 2017-03-27 17:00 | NUR ---
ATTEMPTED TO CALL REPORT TO NURSE ON MED 2. NOT AVAILABLE AT THIS TIME.
--- NOTE | 2017-03-27 17:19 | NUR ---
CALLED TO NOTIFY OF TRANSFER TO ROOM 2121.
--- NOTE | 2017-03-27 17:45 | NUR ---
REPORT CALLED TO [place], ON [facility] FLOOR. WILL TRANSFER PT VIA W/C.
--- NOTE | 2017-03-27 18:00 | NUR ---
PT TAKEN VIA W/C. ASSITED TO RECLINER. CALL LIGHT PLACED IN REACH ALONG WITH PERSONAL BELONGING. FILLING AND PACKING SUPERVISOR AT BEDSIDE TO TAKE VS. INSTRUCTED THAT PT NEEDED TELEMETRY PLACEMENT. STATED SHE WOULD APPLY. PT DENIED FURTHER NEEDS.
--- NOTE | 2017-03-27 18:51 | NUR ---
RECIVED FROM CVICU PER WC
--- NOTE | 2017-03-27 19:51 | NUR ---
AWAKE SITTING UP IN CHAIR. HEPARIN GTTGOING AT15. MONITOR SHOWS NSR @ 70. NO APPARENT DISTRESS.
[2017-03-28] VITALS: BP 145/92
[2017-03-28 04:00] VITALS: BP 157/88
[2017-03-28 07:54] VITALS: BP 166/54
--- NOTE | 2017-03-28 08:54 | NUR ---
ASSESSMWNT COMPLETED. TELEMERTY SHOWS SR AT 70. O2 2 L/M PER NC. LEFT AC WITH HEPARIN AT 16 AND NS AT 75. RIGHT GROIN DRSG DRY AND INTACT. DENIES ANY NEEDS. SR UP WITH CALL LIGHT IN REACH
[2017-03-28 12:01] VITALS: BP 148/88
[2017-03-28 12:18] LABS: PROTEIN C - ANTIGEN 53 % (60-150); PROTEIN C - FUNCTIONAL 65 % (73-180)
--- NOTE | 2017-03-28 12:22 | NUR ---
EATING LUNCH DENIES ANY NEEDS OR DISCOMFORT NAD NOTED
[2017-03-28 16:14] LABS: FACTOR II DNA ANALYSIS Negative (())
[2017-03-28 16:41] VITALS: BP 147/90
--- NOTE | 2017-03-28 18:13 | NUR ---
HOB UP LYING QUIETLY. DENIES ANY NEEDS. FAMILY AT BEDSIDE. SR UPWITH CALL LIGHT IN REACH
[2017-03-28 20:00] VITALS: BP 119/82
--- NOTE | 2017-03-28 23:37 | NUR ---
THIS PM, PATIENT RESTING WITHOUT DISTRESS. WARM AND DRY.RLE SWOLLEN. PT REQUESTING XANAX SO HE CAN SLEEP. MONITOR SHOWS SR@68. WILL CONTINUE TO MONITOR.
[2017-03-29] VITALS: BP 117/62
[2017-03-29 04:00] VITALS: BP 155/93
[2017-03-29 06:11] LABS: BASOPHILS 0.3 % (0-2); EOSINOPHILS 6.1 % (0-7); HEMATOCRIT 35.3 % (42.0-54.0); HEMOGLOBIN 11.9 g/dL (13.5-17.5); IMMATURE GRANULOCYTES 0.7 % (0-5); LYMPHOCYTES 27.6 % (15-50); MCH 32.7 pg (26.0-34.0); MCHC 33.7 g/dL (31.0-37.0); MEAN PLATELET VOLUME 9.2 fL (7.4-10.4); NEUTROPHILS 49.3 % (40-80); PLATELET COUNT 185 10x3/uL (130-400); RBC 3.64 10x6/uL (4.20-6.10); RDW 14.4 % (11.5-14.5); WBC 7.4 10x3/uL (4.8-10.8)
[2017-03-29 06:31] LABS: CALC OSMOLALITY 281 mosm/kg (275-300); CALCIUM 7.9 mg/dL (8.5-10.1); CARBON DIOXIDE 27.6 mmol/L (21.0-32.0); CHLORIDE - SERUM 107 mmol/L (98-107); CREATININE - SERUM 0.9 mg/dL (0.6-1.3); GLUCOSE 105 mg/dL (74-106); MAGNESIUM - SERUM 1.7 mg/dL (1.8-2.4); SODIUM 142 mmol/L (136-145); UREA NITROGEN 11 mg/dL (7-18); eGFR NON AFRICAN AMERICAN 88 mL/min (90-120)
[2017-03-29 06:36] LABS: POTASSIUM - SERUM 3.2 mmol/L (3.5-5.1)
--- NOTE | 2017-03-29 07:10 | NUR ---
PT RESTING QUIETLY EYES CLOSED RESP UNLABORED NAD NOTED
--- NOTE | 2017-03-29 07:32 | NUR ---
ASSESSMENT COMPLETED. DENIES ANY NEEDS. TELEMERTY SHOWS SR 61. LEFT AC WITH HEPARIN AT 16 AND NS AT 75. 02 AT 2 L/M PER NC. DRSG TO RIGHT GROIN DRY AND INTACT. SR UP WITH CALL LIGHT IN REACH
[2017-03-29 08:25] VITALS: BP 188/104
[2017-03-29 11:30] VITALS: BP 177/106
--- NOTE | 2017-03-29 12:31 | NUR ---
UP TO BATHROOM. PT IS WEAK BUT GAIT IS STEADY. NO COMPLAINTS VOICED. TELEMERTY SHOWS SR
--- NOTE | 2017-03-29 13:59 | NUR ---
Nutrition follow-up: diet: Regular PO intake ~70% of meals labs reviewed +BM Wt: 208# PO intake good at this time RDN following.
--- NOTE | 2017-03-29 18:31 | NUR ---
LYING QUIETLY. DENIES ANY NEEDS. SR UP WITH CALL LIGH IN REACH
[2017-03-29 19:00] VITALS: BP 196/102
[2017-03-30] VITALS: BP 174/101
[2017-03-30 04:00] VITALS: BP 150/94
[2017-03-30 04:36] LABS: BASOPHILS 0.6 % (0-2); EOSINOPHILS 6.6 % (0-7); HEMATOCRIT 34.7 % (42.0-54.0); HEMOGLOBIN 11.7 g/dL (13.5-17.5); IMMATURE GRANULOCYTES 0.4 % (0-5); LYMPHOCYTES 28.8 % (15-50); MCH 32.9 pg (26.0-34.0); MCHC 33.7 g/dL (31.0-37.0); MCV 97.5 fL (80.0-100.0); MEAN PLATELET VOLUME 9.4 fL (7.4-10.4); MONOCYTES 15.2 % (2-11); NEUTROPHILS 48.4 % (40-80); PLATELET COUNT 203 10x3/uL (130-400); RBC 3.56 10x6/uL (4.20-6.10); RDW 14.1 % (11.5-14.5); WBC 7.2 10x3/uL (4.8-10.8)
[2017-03-30 05:02] LABS: CALC OSMOLALITY 276 mosm/kg (275-300); CALCIUM 8.1 mg/dL (8.5-10.1); CARBON DIOXIDE 28.2 mmol/L (21.0-32.0); CHLORIDE - SERUM 107 mmol/L (98-107); CREATININE - SERUM 0.9 mg/dL (0.6-1.3); GLUCOSE 98 mg/dL (74-106); MAGNESIUM - SERUM 1.7 mg/dL (1.8-2.4); POTASSIUM - SERUM 3.4 mmol/L (3.5-5.1); SODIUM 140 mmol/L (136-145); UREA NITROGEN 6 mg/dL (7-18); eGFR NON AFRICAN AMERICAN 88 mL/min (90-120)
--- NOTE | 2017-03-30 06:37 | NUR ---
PT POTASSIUM THIS AM 3.4 - KCL 40 MEQ PO GIVEN. PT MAG ALSO 1.7 THIS AM. MAG OX 400 MG PO GIVEN. WILL REPORT TO DAY SHIFT NURSE TO FOLLOW UP PER ELECTROLYTE PROTOCOL.
[2017-03-30 08:00] VITALS: BP 158/94
--- NOTE | 2017-03-30 09:11 | NUR ---
TELEMETRY SB. HEPRIN GTT INFUSING. CALL LIGHT IN REACH. WILL CONT. PLAN OF CARE.
[2017-03-30 12:00] VITALS: BP 175/97
[2017-03-30 16:00] VITALS: BP 170/104
[2017-03-30 19:00] VITALS: BP 160/85
[2017-03-31] VITALS (7 sets, daily range): BP systolic 134–172; BP diastolic 76–99
[2017-03-31 06:36] LABS: BASOPHILS 0.3 % (0-2); EOSINOPHILS 6.6 % (0-7); HEMATOCRIT 35.9 % (42.0-54.0); IMMATURE GRANULOCYTES 0.4 % (0-5); LYMPHOCYTES 32.1 % (15-50); MCH 32.7 pg (26.0-34.0); MCHC 33.4 g/dL (31.0-37.0); MCV 97.8 fL (80.0-100.0); MEAN PLATELET VOLUME 9.4 fL (7.4-10.4); MONOCYTES 13.4 % (2-11); NEUTROPHILS 47.2 % (40-80); PLATELET COUNT 241 10x3/uL (130-400); RBC 3.67 10x6/uL (4.20-6.10); RDW 14.5 % (11.5-14.5); WBC 7.4 10x3/uL (4.8-10.8)
[2017-03-31 06:44] LABS: CALC OSMOLALITY 280 mosm/kg (275-300); CALCIUM 8.2 mg/dL (8.5-10.1); CARBON DIOXIDE 30.8 mmol/L (21.0-32.0); CHLORIDE - SERUM 106 mmol/L (98-107); CREATININE - SERUM 0.8 mg/dL (0.6-1.3); GLUCOSE 92 mg/dL (74-106); MAGNESIUM - SERUM 1.7 mg/dL (1.8-2.4); POTASSIUM - SERUM 3.5 mmol/L (3.5-5.1); SODIUM 142 mmol/L (136-145); UREA NITROGEN 6 mg/dL (7-18); eGFR NON AFRICAN AMERICAN > 90 mL/min (90-120)
--- NOTE | 2017-03-31 07:55 | NUR ---
ASSESSMENT DONE. DENIES NEEDS.
--- NOTE | 2017-03-31 09:02 | NUR ---
HEPRIN GTT INFUSING. CALL LIGHT IN REACH. WILL MONITOR NEEDS.
--- NOTE | 2017-03-31 17:21 | NUR ---
AT SIDE. WITHOUT CHANGES OR DISTRESS NOTED AT THIS TIME.
--- NOTE | 2017-03-31 19:00 | NUR ---
INITIAL ROUNDS MADE. PT SITTING UP IN BED WATCHING TV. NO NEEDS OR C/O VOICED AT THIS TIME. CALL LIGHT IN REACH. WILL CONT TO MONITOR.
--- NOTE | 2017-03-31 20:30 | NUR ---
SEE HEPARIN FLOW SHEET.
--- NOTE | 2017-04-01 01:18 | NUR ---
RESTING WELL WITH EYES CLOSED, CALL LIGHT IN REACH. WILL CONT TO MONITOR.
[2017-04-01 03:43] VITALS: BP 133/76
[2017-04-01 07:21] LABS: BASOPHILS 0.2 % (0-2); EOSINOPHILS 4.3 % (0-7); HEMATOCRIT 35.5 % (42.0-54.0); HEMOGLOBIN 11.9 g/dL (13.5-17.5); IMMATURE GRANULOCYTES 0.3 % (0-5); LYMPHOCYTES 19.2 % (15-50); MCHC 33.5 g/dL (31.0-37.0); MCV 98.3 fL (80.0-100.0); MEAN PLATELET VOLUME 8.9 fL (7.4-10.4); MONOCYTES 12.1 % (2-11); NEUTROPHILS 63.9 % (40-80); PLATELET COUNT 246 10x3/uL (130-400); RBC 3.61 10x6/uL (4.20-6.10); RDW 14.7 % (11.5-14.5); WBC 9.3 10x3/uL (4.8-10.8)
--- NOTE | 2017-04-01 07:29 | NUR ---
ASSESSMENT COMPLETED. TELEMERTY SHOWS SR 65. 02 AT 2 PER NC PRN. IV TO LEFT FA WITH HEPARIN AT 13 ANDNS AT 75. PT IS UP AB SULEMAN. CALL LIGHT IN REACH WITH SR UP.
[2017-04-01 07:36] LABS: CALC OSMOLALITY 280 mosm/kg (275-300); CALCIUM 8.3 mg/dL (8.5-10.1); CARBON DIOXIDE 31.2 mmol/L (21.0-32.0); CHLORIDE - SERUM 107 mmol/L (98-107); GLUCOSE 96 mg/dL (74-106); POTASSIUM - SERUM 3.8 mmol/L (3.5-5.1); SODIUM 142 mmol/L (136-145); UREA NITROGEN 8 mg/dL (7-18); eGFR NON AFRICAN AMERICAN 78 mL/min (90-120)
[2017-04-01 07:37] VITALS: BP 159/93
[2017-04-01 11:22] VITALS: BP 154/92
--- NOTE | 2017-04-01 11:22 | NUR ---
RESTING QUIETLY EYES CLOSED RESP UNLABORED AT BEDSIDE NAD NOTED
--- NOTE | 2017-04-01 13:21 | NUR ---
LYING QUIETLY WITH EYES CLOSED. NO DISTRESS NOTED. TELEMERTY SHOWS SR.
[2017-04-01 15:34] VITALS: BP 171/89
--- NOTE | 2017-04-01 18:01 | NUR ---
NO CHANGES THIS SHIFT.DENIES ANY NEEDS, JUST WANT TO GO HOME. TELEMERTY SHOWS SR.
--- NOTE | 2017-04-01 18:06 | NUR ---
LYING QUIETLY WITH HOB UP. FAMILY AT BED SIDE AND BED ALARM ON. IV STARTED TO RIGHT HAND WITH NS AT 100 INFUSING. TELEMERTY SHOWS SR
--- NOTE | 2017-04-01 19:00 | NUR ---
INITIAL ROUNDS MADE. PT SITTING UP IN BED WATCHING TV. DENIES NEEDS OR C/O AT THIS TIME. CALL LIGHT IN REACH. WILL CONT TO MONITOR.
[2017-04-01 20:28] VITALS: BP 125/77
[2017-04-01 23:54] VITALS: BP 140/89
--- NOTE | 2017-04-02 00:33 | NUR ---
FOCUSING MACHINE OPERATOR AT BEDSIDE FOR VS. NEEDS ADDRESSED AT THIS TIME. CALL LIGHT IN REACH. WILL CONT TO MONITOR.
[2017-04-02 04:05] VITALS: BP 130/67
[2017-04-02 05:46] LABS: BASOPHILS 0.4 % (0-2); EOSINOPHILS 5.9 % (0-7); HEMATOCRIT 34.9 % (42.0-54.0); HEMOGLOBIN 11.6 g/dL (13.5-17.5); IMMATURE GRANULOCYTES 0.4 % (0-5); LYMPHOCYTES 34.4 % (15-50); MCH 32.9 pg (26.0-34.0); MCHC 33.2 g/dL (31.0-37.0); MCV 98.9 fL (80.0-100.0); MEAN PLATELET VOLUME 9.4 fL (7.4-10.4); MONOCYTES 15.1 % (2-11); NEUTROPHILS 43.8 % (40-80); PLATELET COUNT 278 10x3/uL (130-400); RBC 3.53 10x6/uL (4.20-6.10)
[2017-04-02 05:58] LABS: CALC OSMOLALITY 284 mosm/kg (275-300); CALCIUM 8.4 mg/dL (8.5-10.1); CARBON DIOXIDE 29.6 mmol/L (21.0-32.0); CHLORIDE - SERUM 108 mmol/L (98-107); CREATININE - SERUM 0.9 mg/dL (0.6-1.3); GLUCOSE 92 mg/dL (74-106); MAGNESIUM - SERUM 1.9 mg/dL (1.8-2.4); POTASSIUM - SERUM 3.7 mmol/L (3.5-5.1); SODIUM 144 mmol/L (136-145); UREA NITROGEN 8 mg/dL (7-18); eGFR NON AFRICAN AMERICAN 88 mL/min (90-120)
[2017-04-02 06:14] LABS: WBC 6.8 10x3/uL (4.8-10.8)
--- NOTE | 2017-04-02 07:41 | NUR ---
ASSESSMENT COMPLETED. UP AB SULEMAN. NO NEEDS VOICED. TELEMERTY SHOWS SR AT 61. LEFT FA IV WITH HEPARIN AT 13 AND NS AT 75CC/HR. SR UP WITH CALL LIGHT IN REACH. WILL MONITOR
[2017-04-02 08:02] VITALS: BP 181/99
--- NOTE | 2017-04-02 09:41 | NUR ---
AAOX4 READING NEWSPAPER RESP UNLABORED NAD NOTED
--- NOTE | 2017-04-02 11:33 | NUR ---
LYING QUIETLY. NO NEEDS VOICED. WILL MONITOR
[2017-04-02 11:43] VITALS: BP 174/93
--- NOTE | 2017-04-02 14:12 | NUR ---
UP TO BR. DENIES ANY NEEDS. WILL MONITOR
[2017-04-02 16:35] VITALS: BP 160/92
--- NOTE | 2017-04-02 17:25 | NUR ---
NO CHANGES THIS SHIFT. DENIES ANY NEEDS. WILL MONITOR. FAMILY AT BEDSIDE
--- NOTE | 2017-04-02 19:00 | NUR ---
INITIAL ROUNDS MADE. PT SITTING UP IN BED WATCHING TV. NO NEEDS OR C/O VOICED AT THIS TIME. TELE SR. DISCUSSED PLAN OF CARE AND NEW MED ELIQUIS. CALL LIGHT IN REACH. WILL CONT TO MONITOR.
[2017-04-02 20:29] VITALS: BP 133/67
[2017-04-03 00:10] VITALS: BP 128/74
--- NOTE | 2017-04-03 03:31 | NUR ---
SLATE WORKER AT BEDSIDE FOR VS. NEEDS ADDRESSED AT THIS TIME. CALL LIGHT IN REACH. WILL CONT TO MONITOR.
[2017-04-03 05:28] VITALS: BP 131/68
--- NOTE | 2017-04-03 06:28 | NUR ---
RESTING WELL WITH EYES CLOSED, CONT TO MONITOR.
--- NOTE | 2017-04-03 07:15 | NUR ---
ASSESSMENT DONE DENIOES NEEDS AT THIS TIME.
[2017-04-03] MEDS ORDERED: ELIQUIS5 MG PO (07:42)
[2017-04-03] MEDS ORDERED: LISINOPRIL10 MG PO (07:43)
[2017-04-03 07:53] VITALS: BP 158/93
--- NOTE | 2017-04-03 09:51 | NUR ---
RESTS IN BED. ZAIDA NEEDS AT THIS TIME. CALL LIGHT IN REACH. WILL MONITOR.
--- NOTE | 2017-04-03 10:47 | NUR ---
Patient Name: KELVIN CONWAY Encounter No: [id number] : 1945 Primary Insurance: [id number] Anticipated DC Date: 04-03-2017 Planned Disposition: Home DCP follow-up note: CM MET WITH PT IN ROOM TO DISCUSS DISCHARGE NEEDS AND PLANNING. CM DISCUSSED AVAILABILITY OF HOME HEALTH, REHAB SERVICES AND MEDICAL EQUIPMENT. PT DENIES DISCHARGE NEEDS. SPOUSE TO TRANSPORT HOME AT DISCHARGE. IMPORTANT MESSAGE FROM MEDICARE PROVIDED AND EXPLAINED. Justyn Delgado, CASE MANAGEMENT
--- NOTE | 2017-04-03 11:15 | NUR ---
DC GIVEN TO PT AND
--- NOTE | 2017-04-03 11:31 | NUR ---
DC HOME PER PERSONAL CAR
--- NOTE | 2017-04-04 06:18 | EC ---
PATIENT:KELVIN CONWAY JR DATE OF SERVICE: 03/23/17 SEX: M MEDICAL RECORD: [id number] DATE OF : [birth year] LOCATION:D.M2 D.212 AGE OF PATIENT: 71 ADMISSION DATE: 03/23/17 REFERRING PHYSICIAN: INTERPRETING PHYSICIAN: BETY MENDOZA M.D. ECHOCARDIOGRAM REPORT ECHO CHARGES 5 ECHO LIMITED CLINICAL DIAGNOSIS: REASSESS RV THROMBUS ECHOCARDIOGRAPHIC MEASUREMENTS (adult normal given) AC root (d.<3.7cm) 0 LV Septum d (<1.2 cm> 0 Valve Excursion 0 LV Septum (systole) 0 Left Atria (s.<4.0cm> 0 LVPW d(<1.2cm) 0 RV (d.<2.3cm) 0 LVPW (sytole) 0 LV diastole(<5.6CM) 0 MV E-F(>70mm/sec) 0 LV systole 0 LVOT Diameter 0 MV exc.(>10mm) 0 Est.ejection fraction (50-75%) Pericardial Effusion N DOPPLER: LVIT 0 A 0 E 0 LA 0 RVSP 43 LVOT 0 AOP1/2T 0 Asc. Ao 0 RVOT 0 RA 0 PA 0 AV Gradient Peak 0 AV Mean 0 AV Area 0 MV Gradient Peak 0 MV Mean 0 MV Area 0 COMMENTS: LIMITED STUDY (2-D ONLY) COMPLETE ECHO DONE ON 03/25/17 Aviation Medicine Specialist: Geovanna PETERS Welt Sole Layer:2 Dr. Mendoza TAPE# PACS DATE OF SERVICE: 04/02/2017 REFERRING PHYSICIAN: Aaron Iglesias MD. INDICATION: Assess right ventricular thrombus. DESCRIPTION: This is a limited study to look at the right ventricular thrombus. Left ventricle still appears normal in size and function. No wall motion abnormalities are seen. Estimated ejection fraction is 55%. Right ventricle ECHOCARDIOGRAM REPORT [id number] KELVIN CONWAY JR appears mildly dilated. There does still appear to be thrombus in the right ventricle apex. It continues to regress in size. It does appear to be more calcified at this point. It appears to be adherent to wall as well. IMPRESSION: Resolving thrombus in the right ventricle apex. It appears to be more calcified. It appears adherent to the right ventricular wall. It continues to decrease in size compared to recent study. TRANSINT:[id number] Voice Confirmation ID: [id number] DOCUMENT ID: [id number] BETY MENDOZA M.D. at 0618 CC: [id number] DICTATION DATE: 04/03/17720 LITHOGRAPHIC PRESS OPERATOR APPRENTICE: 04/03/17 1003 DIS IN 04/03/17 [facility] [address] [id number]
== END 2017-04-03 11:31 | disposition home or self-care (01) | DRG 166 ==
LOC: D.ER 17:39 → D.CVICU 21:57 → D.M2 21:57 → D.CVICU 03-25 14:19 → D.M2 03-27 18:38
PROVIDERS: Emergency Medicine; Internal Medicine Pulmonary Disease; Radiology Diagnostic Radiology; ADMIT Family Medicine
PROC: 3E04317 Introduction of Other Thrombolytic into Central Vein, Percutaneous Approach (ICD-10-PCS; 2017-03-25)
PROC: 06H03DZ Insertion of Intraluminal Device into Inferior Vena Cava, Percutaneous Approach (ICD-10-PCS; principal; 2017-03-26 08:30)
DX: I26.99 Other pulmonary embolism without acute cor pulmonale (principal); J18.9 Pneumonia, unspecified organism; I82.402 Acute embolism and thrombosis of unspecified deep veins of left lower extremity; J98.11 Atelectasis; I51.3 Intracardiac thrombosis, not elsewhere classified; D64.9 Anemia, unspecified; I48.91 Unspecified atrial fibrillation; I27.2 Other secondary pulmonary hypertension; E86.0 Dehydration; J30.9 Allergic rhinitis, unspecified; K21.9 Gastro-esophageal reflux disease without esophagitis; F41.9 Anxiety disorder, unspecified

== ENCOUNTER → 2017-04-24 13:57 | Outpatient (CLI) | payer MEDICARE ==
[2017-03-26 10:11] VITALS: BMI 27.8
[~2017-04-24 13:57] MED LIST: DOXYCYCLINE HY100 M2 PO; ELIQUIS5 MG PO; LISINOPRIL10 MG PO; RYTHMOL SR225 MG PO; SAW PALMETTO450 MG PO
== END | disposition home or self-care (01) ==
LOC: D.CT 13:57
DX: R31.9 Hematuria, unspecified (principal); R97.20 Elevated prostate specific antigen [PSA]

== ENCOUNTER → 2017-07-02 18:14 | Outpatient (CLI) | payer MEDICARE ==
[2017-03-26 10:11] VITALS: BMI 27.8
== END | disposition home or self-care (01) ==
LOC: D.LABREF 18:14
DX: R31.9 Hematuria, unspecified (principal)

== ENCOUNTER → 2017-07-15 09:50 | Outpatient (CLI) | payer MEDICARE ==
[2017-03-26 10:11] VITALS: BMI 27.8
== END | disposition home or self-care (01) ==
LOC: D.ECHO 09:50 → D.RT 11:00
DX: I27.2 Other secondary pulmonary hypertension (principal); I82.402 Acute embolism and thrombosis of unspecified deep veins of left lower extremity

== ENCOUNTER → 2017-10-16 13:01 | Outpatient (CLI) | payer MEDICARE ==
[2017-03-26 10:11] VITALS: BMI 27.8
[~2017-10-16 13:01] MED LIST changes: +MINOCIN50 MG PO
== END | disposition home or self-care (01) ==
LOC: D.US 13:00
DX: Z86.718 Personal history of other venous thrombosis and embolism (principal)

== ENCOUNTER 2017-12-12 05:21 | Day surgery (SDC) | payer MEDICARE ==
[2017-12-11 10:27] LABS: HEMATOCRIT 40.9 % (42.0-54.0); HEMOGLOBIN 13.7 g/dL (13.5-17.5); MCH 33.5 pg (26.0-34.0); MCHC 33.5 g/dL (31.0-37.0); MEAN PLATELET VOLUME 9.3 fL (7.4-10.4); RBC 4.09 10x6/uL (4.20-6.10); RDW 13.1 % (11.5-14.5); WBC 5.9 10x3/uL (4.8-10.8)
[~2017-12-12] VITALS: Ht 180.3 cm; Wt 97.5 kg
--- NOTE | ~2017-12-12 | OP ---
PATIENT NAME: KELVIN CONWAY JR MEDICAL RECORD: [id number] :41 LOCATION:[facility] ADMISSION DATE: SURGEON: LORETTA GUILLERMO MD DATE OF OPERATION: 12/12/2017 SURGEON: Loretta Guillermo MD ANESTHESIA: MAC by Shahab Juan CRNA PREOPERATIVE DIAGNOSIS: Hematuria, possible left renal stone, 9mm. PROCEDURES: Cystoscopy, bilateral retrograde pyelograms. FINDINGS: Obstructive prostate with enlarged prosthetic veins causing hematuria. Single ureteral orifices bilaterally. No bladder tumors. No radiodense stones were seen on fluoroscopy. On injection of the retrograde pyelogram, we could not find any filling defects to suggest the renal stone. CLINICAL HISTORY: This is a 72-year-old male who was seen earlier for an elevated PSA of 6.27. He is due to have a repeat PSA. He was found to have microscopic hematuria and he had a workup for that. A CT scan showed a possible left renal 9-mm stone. The patient was on Eliquis for some time and we could not perform any procedures until he was off his Eliquis. He has finally come off the Eliquis and now we can go ahead and do investigations. The plan was for cystoscopy for the hematuria, bilateral retrograde pyelograms for the possible stone as well as to the hematuria, and if we found the stone to insert a left ureteral stent and proceed with left ESWL today. He is not allergic to any medications. He was given Ancef 2 grams IV metal bonding press operator to the OR. DESCRIPTION OF PROCEDURE: The patient was given IV sedation. He was placed in the dorsal lithotomy position and prepped and draped. A 21-Argent[place] cystoscope with 30-degree lens was used for visualization. Findings are as outlined above. We could not see a radiodense stone at all on fluoroscopy. The left ureteral orifice was intubated with a 5-Argentine open-ended ureteral catheter and diluted contrast was injected for retrograde pyelogram. There was no hydronephrosis and no filling defects. Specifically, no filling defects in the kidneys to suggest a stone were seen. The procedure was repeated on the right side and again this side was normal. At this point, we decided to abandon any further attempts to place a stent. I will repeat his PSA. If the PSA is back in the normal range, then he can start on finasteride to shrink his prostatic veins. If the PSA remains elevated, he probably needs to have a prostate biopsy. TRANSINT:[id number] Voice Confirmation ID: [id number] DOCUMENT ID: [id number] LORETTA GUILLERMO MD at 1104 CC: [id number] DICTATION DATE: 12/12/17809 MACHINE ETCHER: 12/12/17 1057 [facility] 12/12/17 [place] [id number]
[2017-12-12 06:32] VITALS: BP 156/94; Ht 180.3 cm; Wt 97.5 kg
== END 2017-12-12 09:20 | disposition home or self-care (01) ==
LOC: D.OPS 05:21 → D.PAN 07:30 → D.OPS 07:30
PROVIDERS: Anesthesiology
DX: N40.1 Benign prostatic hyperplasia with lower urinary tract symptoms (principal); N13.8 Other obstructive and reflux uropathy; R31.9 Hematuria, unspecified; R97.20 Elevated prostate specific antigen [PSA]; Z01.812 Encounter for preprocedural laboratory examination

== ENCOUNTER 2017-12-22 00:08 | Inpatient (IN) | payer MEDICARE | END 2018-01-02 15:02 | disposition home health service (06) | DRG 694 | LOC: D.ER 00:08 → D.M2 05:15 | PROC: BT1F1ZZ Fluoroscopy of Left Kidney, Ureter and Bladder using Low Osmolar Contrast (ICD-10-PCS; 2017-12-22) | PROC: 0T9130Z Drainage of Left Kidney with Drainage Device, Percutaneous Approach (ICD-10-PCS; principal; 2017-12-23) | PROC: BT1F1ZZ Fluoroscopy of Left Kidney, Ureter and Bladder using Low Osmolar Contrast (ICD-10-PCS; 2017-12-23) | PROC: BT121ZZ Fluoroscopy of Left Kidney using Low Osmolar Contrast (ICD-10-PCS; 2017-12-25) | PROC: 0T773DZ Dilation of Left Ureter with Intraluminal Device, Percutaneous Approach (ICD-10-PCS; 2017-12-28) | PROC: 0TP5X0Z Removal of Drainage Device from Kidney, External Approach (ICD-10-PCS; 2017-12-31) | DX: N13.2 Hydronephrosis with renal and ureteral calculous obstruction (principal); I82.412 Acute embolism and thrombosis of left femoral vein; I82.442 Acute embolism and thrombosis of left tibial vein; N13.8 Other obstructive and reflux uropathy; N39.0 Urinary tract infection, site not specified; N17.9 Acute kidney failure, unspecified; I48.0 Paroxysmal atrial fibrillation; K21.9 Gastro-esophageal reflux disease without esophagitis; F41.9 Anxiety disorder, unspecified; I95.9 Hypotension, unspecified; N40.1 Benign prostatic hyperplasia with lower urinary tract symptoms ==

== ENCOUNTER → 2018-01-10 18:21 | Outpatient (CLI) | payer MEDICARE ==
[2017-12-27 14:41] VITALS: BMI 30.2
[~2018-01-10 18:21] MED LIST changes: +FLOMAX0.4 MG PO; +UROCIT-K10 MEQ PO
== END | disposition home or self-care (01) ==
LOC: D.LABREF 18:21
DX: N39.0 Urinary tract infection, site not specified (principal)

== ENCOUNTER → 2018-01-16 08:08 | Outpatient (CLI) | payer MEDICARE ==
[2017-12-27 14:41] VITALS: BMI 30.2
[~2018-01-16 08:08] MED LIST changes: +LASIX20 MG PO
== END | disposition home or self-care (01) ==
LOC: D.CT 08:08
DX: N20.0 Calculus of kidney (principal)

== ENCOUNTER 2018-01-30 05:58 | Day surgery (SDC) | payer MEDICARE ==
[~2018-01-30] VITALS: Ht 182.9 cm; Wt 90.7 kg
--- NOTE | ~2018-01-30 | OP ---
PATIENT NAME: KELVIN CONWAY JR MEDICAL RECORD: [id number] :41 LOCATION:D.OPS ADMISSION DATE: SURGEON: MARK GUILLERMO MD DATE OF OPERATION: 01/30/2018 SURGEON: Mark Guillermo MD ANESTHESIA: MAC by Mark Marino MD. PREOPERATIVE DIAGNOSIS: Retained left ureteral stent. PROCEDURE: Cystoscopy and left ureteral stent removal. FINDINGS: Retained left ureteral stent without calcification. SPECIMENS: Left ureteral stent. COMPLICATIONS: None. BLOOD LOSS: None. CLINICAL HISTORY: This is a 72-year-old male, who had a large obstructive left distal ureteral stone causing hydronephrosis. He also developed pyelonephritis. I could not get a wire up from below as the stone was completely obstructive of the ureter. He then had a nephrostomy tube placed in for a while and then interventional radiology was able to insert a left antegrade ureteral stent to decompress the left kidney. He has been on potassium citrate to dissolve the radiolucent stone. The stone was visible on CT, but not visible on plain x-rays and therefore presumed to be uric acid. The patient does have a history of gout also. On his latest CT scan, the stone had completely resolved. He comes now to have the stent removed. He is not allergic to any medications, and he was given Ancef lead front end developer to the OR. DESCRIPTION OF PROCEDURE: The patient was given IV sedation. He was placed in the dorsal lithotomy position. A 21-Citizen Of [place] cystoscope with 30-degree lens was used for visualization. The stent was seen and grasping forceps were used to entirely remove the stent. The stent was sent to pathology for identification. The patient was awakened and brought back to his preoperative holding area. TRANSINT:[id number] Voice Confirmation ID: [id number] DOCUMENT ID: [id number] MARK GUILLERMO MD at 1239 CC: [id number] DICTATION DATE: 01/30/18 0853 CUPROUS CHLORIDE HELPER: 01/30/[address] [facility] 01/30/18 [place] [id number]
[~2018-01-30 05:58] MED LIST changes: -LASIX20 MG PO
[2018-01-30] MEDS ORDERED: LASIX20 MG PO (06:45)
[2018-01-30 06:46] VITALS: BP 132/79; Ht 182.9 cm; Wt 90.7 kg
[2018-01-30 07:33] LABS: HEMOGLOBIN 10.3 g/dL (13.5-17.5); MCH 32.1 pg (26.0-34.0); MCHC 32.2 g/dL (31.0-37.0); MCV 99.7 fL (80.0-100.0); MEAN PLATELET VOLUME 8.9 fL (7.4-10.4); RBC 3.21 10x6/uL (4.20-6.10); RDW 14.4 % (11.5-14.5); WBC 5.3 10x3/uL (4.8-10.8)
== END 2018-01-30 10:03 | disposition home or self-care (01) ==
LOC: D.OPS 05:58 → D.PAN 08:15 → D.OPS 08:15
PROVIDERS: Anesthesiology
DX: Z46.6 Encounter for fitting and adjustment of urinary device (principal); Z01.812 Encounter for preprocedural laboratory examination

== ENCOUNTER → 2018-06-23 09:43 | Outpatient (CLI) | payer MEDICARE ==
[2018-01-30 06:46] VITALS: BMI 27.2
[~2018-06-23 09:43] MED LIST changes: +LASIX20 MG PO
== END | disposition home or self-care (01) ==
LOC: D.US 09:43
DX: I82.403 Acute embolism and thrombosis of unspecified deep veins of lower extremity, bilateral (principal)

== ENCOUNTER → 2019-02-04 11:24 | Outpatient (CLI) | payer MEDICARE ==
[2018-01-30 06:46] VITALS: BMI 27.2
== END | disposition home or self-care (01) ==
LOC: D.US 11:24
PROVIDERS: ATTEND Family Medicine
DX: R10.9 Unspecified abdominal pain (principal); R31.9 Hematuria, unspecified; Z87.442 Personal history of urinary calculi

== ENCOUNTER → 2019-02-25 09:20 | Outpatient (CLI) | payer MEDICARE ==
[2018-01-30 06:46] VITALS: BMI 27.2
== END | disposition home or self-care (01) ==
LOC: D.SP 02-20 13:00 → D.CT 09:20
PROVIDERS: ATTEND Urology
DX: N20.0 Calculus of kidney (principal)

== ENCOUNTER → 2019-04-01 13:59 | Outpatient (CLI) | payer MEDICARE ==
[2018-01-30 06:46] VITALS: BMI 27.2
== END | disposition home or self-care (01) ==
LOC: D.RAD 13:59
PROVIDERS: ATTEND Family Medicine
DX: K59.00 Constipation, unspecified (principal)

== ENCOUNTER → 2019-06-16 12:41 | Outpatient (CLI) | payer MEDICARE ==
[2018-01-30 06:46] VITALS: BMI 27.2
== END | disposition home or self-care (01) ==
LOC: D.US 12:41
PROVIDERS: ATTEND Radiology Diagnostic Radiology
DX: I82.409 Acute embolism and thrombosis of unspecified deep veins of unspecified lower extremity (principal)

== ENCOUNTER → 2020-08-01 10:49 | Outpatient (CLI) | payer MEDICARE ==
[2018-01-30 06:46] VITALS: BMI 27.2
== END | disposition home or self-care (01) ==
LOC: D.HCCECHO 10:49
PROVIDERS: ATTEND Internal Medicine Cardiovascular Disease
DX: I25.10 Atherosclerotic heart disease of native coronary artery without angina pectoris (principal)

== ENCOUNTER 2021-01-10 15:37 | Observation (INO) | payer MEDICARE ==
[~2021-01-10] VITALS: Ht 182.9 cm; Wt 90.9 kg
--- NOTE | 2021-01-10 16:22 | NUR ---
DR. BETTENCOURT AT BEDSIDE.
--- NOTE | 2021-01-10 18:22 | NUR ---
URINE COLLECTED AND SENT TO LAB.
--- NOTE | 2021-01-10 20:37 | NUR ---
PATIENT RESTING IN ROOM WITH NAD NOTED. A&OX4. BED IN LOWEST LOCKED POSITION
--- NOTE | 2021-01-10 22:03 | NUR ---
REPORT TO MED2 NURSE.
--- NOTE | 2021-01-10 22:12 | NUR ---
SPOKE WITH SHIRLEY ESPINOSA IN REGARDS TO PATIENT'S ELEVATED BP
--- NOTE | 2021-01-10 23:24 | NUR ---
FAXED CHANGE OF ATTENDING DOCTOR ORDER TO ADMISSIONS.
[2021-01-11] VITALS (11 sets, daily range): BP systolic 92–162; BP diastolic 55–99; Ht 182.9 cm; Wt 90.9 kg
--- NOTE | 2021-01-11 08:00 | NUR ---
PT RESTING IN BED WITH EYES CLOSED. RESP EVEN AND UNLABORED. SPLINT TO LEFT UPPER EXTREMITY. EXTREMITY WARM TO TOUCH. IV TO RIGHT HAND WITH NS @ 50ML/HR INUFUSING VIA PUMP. SITE WITHOUT REDNESS OR EDEMA. CL WITHIN REACH. CONTINUE POC
[2021-01-11 08:51] LABS: BASOPHILS 0.3 % (0-2); EOSINOPHILS 4.1 % (0-7); HEMATOCRIT 34.7 % (42.0-54.0); HEMOGLOBIN 11.3 g/dL (13.5-17.5); IMMATURE GRANULOCYTES 0.1 % (0-5); LYMPHOCYTE ABS# 1.84 10x3/uL (1.32-3.57); LYMPHOCYTES 23.8 % (15-50); MCH 33.4 pg (26.0-34.0); MCHC 32.6 g/dL (31.0-37.0); MCV 102.7 fL (80.0-100.0); MEAN PLATELET VOLUME 9.1 fL (7.4-10.4); NEUTROPHIL ABS# 4.22 10x3/uL (1.78-5.38); NEUTROPHILS 54.7 % (40-80); PLATELET COUNT 215 10x3/uL (130-400); RBC 3.38 10x6/uL (4.20-6.10); RDW 12.9 % (11.5-14.5); WBC 7.7 10x3/uL (4.8-10.8)
[2021-01-11 09:10] LABS: ANION GAP 8.2 mmol/L (8-16); BILIRUBIN - TOTAL 0.94 mg/dL (0.2-1.3); CALCIUM 8.1 mg/dL (8.5-10.1); CARBON DIOXIDE 29.3 mmol/L (21.0-32.0); CREATININE - SERUM 1.2 mg/dL (0.6-1.3); POTASSIUM - SERUM 4.5 mmol/L (3.5-5.1); PROTEIN - SERUM 5.4 g/dL (6.4-8.2)
--- NOTE | 2021-01-11 13:01 | HP ---
PATIENT: KELVIN CONWAY JR MEDICAL RECORD: [id number] ACCOUNT: [id number] LOCATION:[facility] D1209 : [birth year] ADMISSION DATE: 01/10/21 PCP: NOEL CHAN MD HISTORY AND PHYSICAL EXAMINATION DATE OF ADMISSION: 01/10/2021. CHIEF COMPLAINT: Fall, left elbow pain. HISTORY OF PRESENT ILLNESS: This is a 75-year-old white male who was driving with his on his way to [place] to get a COVID immunization. They stopped at [place] in [place] and patient tripped over a curb and fell landing on his left elbow. He felt for sure that it was broken somehow or another. He got back here to [facility] and presented to the ER where x-rays did show a comminuted fracture of the distal left humerus extending through the lateral epicondyle and intra-articular extension involving the left elbow. The patient was seen by Dr. Montalvo in the Emergency Department and a splint has been placed. He is admitted to Dr. Chan, his primary care physician. PAST MEDICAL HISTORY: The patient has a history of paroxysmal atrial fibrillation, followed by Dr. Mendoza. He has a remote history of deep venous thrombosis. He has a history of BPH, reflux with a paraesophageal hernia, and has a history of kidney stones. PAST SURGICAL HISTORY: Hernia repair and left wrist surgery. CURRENT MEDICATIONS: Eliquis 5 mg twice a day and propafenone 225 mg twice a day. ALLERGIES: He states he is not allergic to any medications, but JANKI inhibitors do not work well for him. SOCIAL HISTORY: He is and retired. HABITS: No tobacco. Drinks 2-3 alcoholic beverages in a week. No illicit drug use. FAMILY HISTORY: Father is . He had heart disease and cancer. REVIEW OF SYSTEMS: GENERAL: No major weight changes. HEENT: No particular sinus or allergy problems. RESPIRATORY: No history of asthma, emphysema. CARDIAC: Has history of paroxysmal atrial fibrillation, followed by Dr. Mendoza. GASTROINTESTINAL: He has had reflux and has a paraesophageal hernia. MUSCULOSKELETAL: No significant arthritic aches and pains. He has had previous left wrist surgery. GENITOURINARY: History of BPH. NEUROLOGIC: No migraines or seizure activity. PSYCHIATRIC: No depression or melancholia. PHYSICAL EXAMINATION: VITAL SIGNS: Temperature 97.2, pulse 62, respirations 18, blood pressure elevated 180/96, O2 sat 97%. GENERAL: He is awake and alert. He has a splint placed by Dr. Montalvo on his HISTORY AND PHYSICAL [id number] ZORAIDAKELVIN ARDON left arm. HEENT: Unremarkable. NECK: Supple. No JVD or bruit. CARDIOVASCULAR: Regular rate and rhythm at this time. LUNGS: Clear. ABDOMEN: Soft, flat, nontender. EXTREMITIES: Left arm is in a splint. There is no lower extremity edema. NEUROLOGIC: Grossly intact. LABORATORY DATA: He has had no blood tests done in the ER. He had a CT of the cervical spine showing no acute processes. CT of the head showing no acute processes. Chest x-ray showing no acute processes. X-ray of the left elbow shows oblique fracture through the distal humeral diaphysis extending to lateral epicondyle with extension through the lateral epicondyle with intra-articular extension. CT of the left humerus shows comminuted fracture of distal left humerus diaphysis extending through the lateral epicondyle and intra-articular extension involving the left elbow. ASSESSMENT: 1. Comminuted left elbow fracture. 2. Paroxysmal atrial fibrillation. 3. History of deep venous thrombosis. 4. Elevated blood pressure. PLAN: Pain control. Orthopedics, Dr. Montalvo has already been consulted and is seeing the patient. We will check some basic labs. If does have elevated blood pressure, we will check a CBC due to Eliquis. We will monitor the blood pressure, control pain. Other tests or procedures as warranted. TRANSINT:[id number] Voice Confirmation ID: [id number] DOCUMENT ID: [id number] JURGEN SANTAMARIA MD at 1301 CC: [id number] DICTATION DATE: 01/10/212325 MASTER PRINTER: 01/11/21 0003 ADM IN [facility] [address] [place] [address]
[2021-01-11] MEDS ORDERED: CYCLOBENZAPRINE10 MG PO (14:58)
[2021-01-11] MEDS ORDERED: LOVENOX40 MG/0.4 SC (15:01)
[2021-01-11] MEDS ORDERED: HYDROCODON-ACE1 EA10 PO (15:01)
--- NOTE | 2021-01-11 20:00 | NUR ---
ALERT RESTING IN BED, AT BEDSIDE, DENIES PAIN OR NEDS AT THI TIME, LET ARM IN SLING WITH EXTERMNAL PINS AND JANKI WRAP DRESSING NOTED ABLE TO MOVE FINGERS PINK AND WARM, SEE SHIFT ASSESSMENT, CALL LIGHT IN REACH
--- NOTE | 2021-01-11 23:58 | NUR ---
BED ALARM ACITVATED GETTING UP TO BATHROOM, ASSISTED TO BATHROOM UNCOOPERATIVE WITH ALLOWING NURSE TO ASSIST, VOIDED AND THEN REFUSED TO RETURN TO BED WANTING TO SIT IN CHAIR, ASSISTED TO CHAIR WITH CHIP MAT IN PLACE, REMAINS UNCOPERATIVE WITH NURSE INSISTING ON PUTTING ON JEANS. IV RESITED TO RIGHT FOREARM IV FLUIDS RESTARTED AND SCHEDULED MEDS GIVEN, REMAINING UP IN CHAIR WITH FALL PRECAUTIONS IN PLACE, CONTINUES TO GET UP FROM CHAIR UNASSISTED WITH FALL ALARMS GOING OFF
--- NOTE | 2021-01-12 02:13 | NUR ---
CONTINUES TO GET UP OUT OF CHAIR WITH ALARM GOING OFF, ASSISTED TO BATHROOM AND THEN TO BED WITH BED ALARM ON, REMAINS UNCOPERATIVE WANTING TO PUT ON JACKET AND PUSHING BUTTONS ON IV PUMP IN ATTEMPT TO STOP CHIP AND BED ALARMS
[2021-01-12 04:30] VITALS: BP 138/84
[2021-01-12 07:24] VITALS: BP 154/69
[2021-01-12 07:47] VITALS: BP 154/69
--- NOTE | 2021-01-12 10:45 | NUR ---
IV THERAPY DC'ED FROM RIGHT FOREARM WITH TIP INTACT. DISCHARGE INSTRUCTIONS GIVEN TO AND PT. VERBALIZED UNDERSTANDING. DEMONSTRATED THE CORRECT USAGE OF A SQ NEEDLE. WALKED THEM THROUGH THE PROCESS OF A LOVENOX SHOT. PT AND VERBALIZED UNDERSTANDING. WHEELED TO FRONT ENTRANCE.
--- NOTE | 2021-01-12 12:56 | OP ---
PATIENT NAME: KELVIN NICOLE JR MEDICAL RECORD: [id number] :41 LOCATION:D.M3 D.1209 ADMISSION DATE:01/10/21 SURGEON: UGO BETTENCOURT DO DATE OF OPERATION: 01/11/2021 PROCEDURE PERFORMED: External fixator placement on the left upper extremity. PREOPERATIVE DIAGNOSIS: Displaced left distal humerus fracture, intra-articular. POSTOPERATIVE DIAGNOSIS: Displaced left distal humerus fracture, intra-articular. INDICATIONS: Mr. Nicole is a 75-year-old male who fell yesterday and was brought to the ER, seen to have a displaced distal humerus fracture that went into the joint. He is on Eliquis, and in order to get good fracture reduction and avoid a full blown surgery right away and to help him stabilize the fracture, I told him we could put an external fixator on and then fix in next week when he is off his Eliquis. He was okay with that and was aware of the risks including infection, bleeding, damage to nerves or vessels, need for further surgery, continued pain, loss of motion of the elbow, damage to the radial nerve especially with the humeral pins, and he signed the consent. SURGEON: Ugo Bettencourt DO DESCRIPTION OF PROCEDURE: The patient received block by anesthesia in the preoperative area, taken to the operative suite, laid in the right lateral decubitus position, sedated and LMA was placed. The patient was given 2 grams of Ancef. The left upper extremity was then prepped and draped in sterile fashion. Timeout was performed. Everyone was in agreement with the correct site, side, patient, and procedure. I then placed 2 poke holes over the posterior lateral side of the humerus and used hemostat to clear path to the humerus and put 2 pins into the humerus via guide soft tissue protectors, they are 5-0 pins. I then repeated the process on the ulna and then put 2 pin-to-bar, 2 on the humerus and 2 on the ulna and bars on each [id number] and then we distracted and put a bar-to-bar at the intersection between the two at the elbow. I got x-ray and tightened them down and it held the fracture out in good length from the lateral x-ray. I then adjusted the Ex-Fix a little bit morem, I adjusted the pins. The pin-to-bar device did not rub on the skin and wrapped it with Xeroform, 4 x 4's, cast padding, Kerlix and then Tam wrap around. He was then awakened, put in a sling and taken to recovery in stable condition. BLOOD LOSS: Minimal. COMPLICATIONS: None. TRANSINT:[id number] Voice Confirmation ID: [id number] DOCUMENT ID: [id number] OPERATIVE REPORT [id number] KELVIN NICOLE JR, MICHAEL D, DO at 1256 CC: [id number] DICTATION DATE: 01/11/21 1504 DIVIDER OPERATOR: 01/11/21 2343 DIS IN 01/12/21 [facility] [address] [place] [address]
== END 2021-01-12 10:57 | disposition home or self-care (01) ==
LOC: D.ER 15:37 → OBSVTIME 20:28 → D.M3 20:28
PROVIDERS: Family Medicine; ADMIT Family Medicine; ATTEND Family Medicine
DX: S42.402A Unspecified fracture of lower end of left humerus, initial encounter for closed fracture (principal); W01.10XA Fall on same level from slipping, tripping and stumbling with subsequent striking against unspecified object, initial encounter; Y93.9 Activity, unspecified; Y92.9 Unspecified place or not applicable; I26.99 Other pulmonary embolism without acute cor pulmonale; I82.409 Acute embolism and thrombosis of unspecified deep veins of unspecified lower extremity; K21.9 Gastro-esophageal reflux disease without esophagitis

== ENCOUNTER 2021-01-18 10:03 | Day surgery (SDC) | payer MEDICARE ==
[~2021-01-18] VITALS: Ht 180.3 cm; Wt 88.5 kg
[~2021-01-18 10:03] MED LIST changes: +ACETAMINOPHEN500 M1 PO; +CYCLOBENZAPRINE10 MG PO; +HYDROCODON-ACE1 EA10 PO; +LOVENOX40 MG/0.4 SC; +tylenol pm PO
[2021-01-18 10:46] LABS: BASOPHILS 0.4 % (0-2); EOSINOPHILS 5.8 % (0-7); HEMATOCRIT 36.8 % (42.0-54.0); HEMOGLOBIN 12.3 g/dL (13.5-17.5); IMMATURE GRANULOCYTES 0.1 % (0-5); LYMPHOCYTE ABS# 1.31 10x3/uL (1.32-3.57); LYMPHOCYTES 19.6 % (15-50); MCHC 33.4 g/dL (31.0-37.0); MCV 101.7 fL (80.0-100.0); MEAN PLATELET VOLUME 8.7 fL (7.4-10.4); MONOCYTES 13.8 % (2-11); NEUTROPHIL ABS# 4.03 10x3/uL (1.78-5.38); NEUTROPHILS 60.3 % (40-80); RBC 3.62 10x6/uL (4.20-6.10); WBC 6.7 10x3/uL (4.8-10.8)
[2021-01-18 10:51] LABS: ANION GAP 8.3 mmol/L (8-16); CALCIUM 9.1 mg/dL (8.5-10.1); CARBON DIOXIDE 32.3 mmol/L (21.0-32.0); CREATININE - SERUM 1.4 mg/dL (0.6-1.3); POTASSIUM - SERUM 3.6 mmol/L (3.5-5.1)
[2021-01-18 10:54] LABS: PLATELET COUNT 323 10x3/uL (130-400)
[2021-01-18 11:01] LABS: APTT 23.3 SECONDS (22.8-39.4); INR 1.24 (0.85-1.17); PROTIME 14.5 SECONDS (11.6-15.0)
[2021-01-18 11:06] LABS: SARS-CoV-2 ANTIGEN NEGATIVE- SARS-COV-2 (NEGATIVE)
[2021-01-18 12:08] VITALS: Ht 180.3 cm; Wt 88.5 kg
[2021-01-18] MEDS ORDERED: ELIQUIS5 MG PO (12:17)
--- NOTE | 2021-01-18 17:31 | NUR ---
PT REQUESTS URINAL, URINAL PROVIDED
--- NOTE | 2021-01-18 18:47 | NUR ---
1840 PT REQUESTS PAIN PILL, HAS RX FOR TRAMADOL FOR HOME USE, ORDERED FOR [facility].
--- NOTE | 2021-01-19 08:21 | OP ---
PATIENT NAME: KELVIN NICOLE JR MEDICAL RECORD: [id number] :41 LOCATION:[facility] ADMISSION DATE: SURGEON: JUAN BETTENCOURT DO DATE OF OPERATION: 01/18/2021 PROCEDURE PERFORMED: Left distal humerus open reduction internal fixation. PREOPERATIVE DIAGNOSIS: Left distal humerus, closed, comminuted intraarticular fracture. POSTOPERATIVE DIAGNOSIS: Left distal humerus, closed, comminuted intraarticular fracture. INDICATIONS: Mr. Nicole is a 75-year-old male who fell last week and sustained a fracture in the distal humerus that went through the articular surface of the elbow, who is on Eliquis and so I ex-fixed him to get him some comfort and span the fracture in order to also achieve less swelling, less likelihood of blood loss. He was put on the surgery schedule for today and was put on Lovenox and stopped it two days ago. He was aware of the risks of the surgery including damage to the ulnar nerve, radial nerve, median nerve, fracture fixation failure, improve the fracture, loss of motion of the elbow, need for further surgery, blood clots, bleeding, malunion, nonunion and even and he signed the consent. SURGEON: Juan Bettencourt DO DESCRIPTION OF THE PROCEDURE: The patient received a block by anesthesia in the preoperative area, was taken to the operative suite, laid in the right lateral decubitus position with the left shoulder up and given 2 grams Ancef preoperatively. The left upper extremity was then prepped and draped in sterile fashion. He was sedated and LMA was placed. A timeout was performed, everyone was agreed to the correct side, site, patient, and procedure. The ex-fix frame was prepped into Betadine. I then began to make an incision on the posterior elbow, made careful dissection down to the elbow and the olecranon rather created medial and lateral windows along the triceps, freed up the ulnar nerve and tagged with a vessel loop. I then released it and then did a Chevron osteotomy of the olecranon to the bare area and reflected back the triceps, exposed the fracture. I then reduced the articular surface, put a medial plate on and then put a K-wire through the plate and repeated the process through the lateral side. I then fixed the fracture to the plate by putting proximal screw in and the medial plate shaft and then a lag screw through the fracture in the shaft through the medial plate. We then put locking screws in distally and they were in good position on x-ray and then locking screws at the shaft laterally, then medially and one cortical screw on the medial side and tourniquet was let down. I did exsanguinate the left upper extremity with an Esmarch. I did not elevate it. Tourniquet was inflated to 250 mmHg at the beginning of the procedure and was up for 120 minutes. The tourniquet was then let down at approximately that time and bleeding was controlled. Once the fracture was fixed, x-rays were taken in AP and lateral and screws were all in good position, did not see any screws into the joint and I then fixed the olecranon by putting a plate on it and fixed it and held the plate in with K wires and then put 3 screws in distally and 3 proximal locking screws. One of the shaft screws distally was a cortical screw. I then irrigated thoroughly and closed the triceps windows with #1 Vicryl in a simple and [id number]-eo-lxhlc fashion. I did not transpose the ulnar nerve as it did not sublux or move a lot with elbow OPERATIVE REPORT [id number] KELVIN NICOLE JR range of motion over the medial epicondyle. At that point, we closed the skin with 2-0 Vicryl in interrupted fashion myself and Samir Garces, certified surgical child care assistant student. I then closed the skin after cleaning the skin thoroughly putting a Cavilon on the skin and then a ZipLine and secured them tightly. I then removed the ex-fix pins prior to putting the ZipLine on and curetted it out the pinned holes in the humerus and the ulna and irrigated those out. I then dressed it with Adaptic, 4 x 4s, ABD, cast padding, and a 4 x 30 splint secured with an Tam wrap. He was then awakened and taken to recovery in stable condition. Blood loss was approximately 200 mL. COMPLICATIONS: None. TRANSINT:[id number] Voice Confirmation ID: [id number] DOCUMENT ID: [id number] JUAN BETTENCOURT DO at 0821 CC: [id number] DICTATION DATE: 01/18/211729 LONG LINES OPERATOR: 01/19/21 0022 [facility] 01/18/21 [facility] [address] [id number]
== END 2021-01-18 20:40 | disposition home or self-care (01) ==
LOC: D.OPS 10:03
PROVIDERS: Anesthesiology; ATTEND Orthopaedic Surgery
DX: S42.402A Unspecified fracture of lower end of left humerus, initial encounter for closed fracture (principal); X58.XXXA Exposure to other specified factors, initial encounter; I10 Essential (primary) hypertension; K21.9 Gastro-esophageal reflux disease without esophagitis

== ENCOUNTER → 2021-02-28 09:08 | Outpatient (CLI) | payer MEDICARE ==
[2021-01-18 12:08] VITALS: BMI 27.2
== END | disposition home or self-care (01) ==
LOC: D.CT 09:00
PROVIDERS: ATTEND Family Medicine
DX: I70.213 Atherosclerosis of native arteries of extremities with intermittent claudication, bilateral legs (principal)